=== PATIENT | female | born 1970 ===

== ENCOUNTER 2021-05-05 07:24 | Day surgery (SDC) | payer BC ==
--- NOTE | 2021-04-29 14:41 | RAD REPORT ---
EXAM DESCRIPTION: RAD - Chest Pa And Lat (2 Views) - 04/29/2021 2:34 pm CLINICAL HISTORY: Pre op pending colonoscopy Chest pain. COMPARISON: No comparisons FINDINGS: The lungs are clear. The heart is normal in size. No displaced fractures. IMPRESSION: No acute or concerning finding suspected.
[2021-05-05] MEDS ORDERED: Ringers Lactate 1,000 ML IV ONE (07:40)
[2021-05-05] MEDS ORDERED: propofoL 200 MG/20 ML VIAL IV ONE ×2 (08:34)
--- NOTE | 2021-05-05 08:50 | ENDO RPT ---
[address], [id number] COLONOSCOPY PROCEDURE REPORT EXAM DATE: 05/05/2021 PATIENT NAME: Geovany Hernandez MR #: [id number] BIRTHDATE: 1970 ATTENDING: Parker Menjivar M.D. STATUS: outpatient HEAD FILTER PRESS TENDER: Marielos Mccoy RN INDICATIONS: The patient is a 50 yr old Female here for a colonoscopy due to family history of colon cancer and colon cancer screening PROCEDURE PERFORMED: Colonoscopy MEDICATIONS: Per Anesthesia. ESTIMATED BLOOD LOSS: None CONSENT: The patient understands the risks and benefits of the procedure and understands that these risks include, but are not limited to: sedation, allergic reaction, infection, perforation and/or bleeding. Alternative means of evaluation and treatment include, among others: physical exam, x-rays, and/or surgical intervention. The patient elects to proceed with this endoscopic procedure. DESCRIPTION OF PROCEDURE: During intra-op preparation period all mechanical medical equipment was checked for proper function. Hand hygiene and appropriate measures for infection prevention was taken. Procedure, possible complications, alternatives including, but not limited to possibility of bleeding, perforation, tear, infection, sepsis, need for surgery, need for blood transfusion, were explained to the patient. After the risks, benefits and alternatives of the procedure were thoroughly explained, Informed consent was verified, confirmed and timeout was successfully executed by the treatment team. The patient was placed in the left lateral position. A digital rectal exam was performed and revealed no abnormalities of the rectum. After appropriate level of anesthesia, the scope was passed. The EC-[id number] ([id number]) endoscope was introduced through the anus and advanced to the cecum, which was identified by the ileocecal valve. The quality of the prep was good. The instrument was then slowly withdrawn as the colon was fully examined. Scope withdrawal time was 12 minutes. COLON FINDINGS: Moderate diverticulosis was noted in the sigmoid colon and descending colon. Small internal hemorrhoids were found. Retroflexed views revealed no abnormalities. The scope was then completely withdrawn from the patient and the procedure terminated. ADVERSE EVENTS: There were no complications. IMPRESSIONS: 1. Moderate diverticulosis was noted in the sigmoid colon and descending colon 2. Small internal hemorrhoids RECOMMENDATIONS: 1. follow-up: office 1 week(s) 2. Metamucil 3. increase dietary water 4. no seeds in diet 5. fiber rich diet RECALL: Return in 5 year(s) for Colonoscopy. Parker Menjivar M.D. eSigned: Parker Menjivar M.D. 05/05/2021 8:50 AM cc: CPT CODES: ICD9 CODES: PATIENT NAME: Jc Hernandezluis fernandoaustin MontezZoë MR#: [id number]
[2021-05-05 11:00] VITALS: TEMP 97.8
[2021-05-05 11:01] VITALS: BP 108/55; O2SAT 99
[2021-05-05] MEDS ORDERED: LIDOCAINE 1% MPF 2 ML AMPULE ONE (11:17)
== END 2021-05-05 09:31 | disposition home or self-care (01) ==
LOC: OR 07:24
PROVIDERS: ATTEND Surgery
PROC: 0DJD8ZZ Inspection of Lower Intestinal Tract, Via Natural or Artificial Opening Endoscopic (ICD-10-PCS; principal; 2021-05-05 08:30)
DX: Z12.11 Encounter for screening for malignant neoplasm of colon (principal); Z80.0 Family history of malignant neoplasm of digestive organs; Z20.822 Contact with and (suspected) exposure to COVID-19; K57.30 Diverticulosis of large intestine without perforation or abscess without bleeding; K64.8 Other hemorrhoids
CPT/HCPCS: 81025; 71046; 45378; U0002; J2704 ×2; J7120